=== PATIENT | female | born 1940 | race Two or more races ===

== ENCOUNTER 2025-02-01 00:54 | Emergency (ER) | payer OTHER ==
[2025-02-01 01:06] VITALS: RESP 16; BMI 23.8
[2025-02-01] MEDS ORDERED: MAG HYDROX/AL HYDROX/SIMETH 30 ML UNIT-DOSE CUP ONE (02:28)
[2025-02-01] MEDS ORDERED: LIDOCAINE VISCOUS 2% ORAL/TOP 15 ML UNIT-DOSE CUP ONE (02:28)
[2025-02-01] MEDS ORDERED: ACETAMINOPHEN INJECTION 100 ML ONE (02:28)
[2025-02-01] MEDS ORDERED: FAMOTIDINE 20 MG/50 ML IVPB 20 MG/50 ML MG IVPB ONE (02:28)
[2025-02-01] MEDS: SODIUM CHLORIDE 0.9% 500 ML INFUS.BAG IV ONE (02:47)
[2025-02-01] MEDS: ACETAMINOPHEN 1000 MG/100 ML BAG IVPB ONE (02:47)
[2025-02-01] MEDS: LIDOCAINE VISCOUS 2% ORAL/TOP 15 ML UNIT-DOSE CUP MM ONE (02:47)
[2025-02-01] MEDS: MAG HYDROX/AL HYDROX/SIMETH 30 ML UNIT-DOSE CUP PO ONE (02:47)
[2025-02-01 02:51] LABS: ABSOLUTE IMMATURE GRANULOCYTES 0.03 x10^3/uL (0.0-0.031); BASOPHILS # 0.02 x10^3/uL (0.01-0.08); EOSINOPHIL % 0.3 % (0.7-5.8); EOSINOPHILS # 0.02 x10^3/uL (0.04-0.36); MCHC 32.4 g/dl (32.2-35.5); MEAN CELL VOLUME 84.6 fl (79.4-94.8); MEAN PLT VOLUME 9.7 fl (9.4-12.3); MONOCYTE # 0.79 x10^3/uL (0.24-0.86); MONOCYTE % 10.1 % (4.7-12.5); RDW 14.8 % (12.5-17.0)
[2025-02-01] MEDS: FAMOTIDINE 20 MG/50 ML IVPB 20 MG/50 ML MG IVPB ONE (03:02)
[2025-02-01 03:05] LABS: GLUCOSE,RANDOM 155.0 mg/dL (74-106)
[2025-02-01 03:06] LABS: TOT PROT 7.1 g/dl (6.4-8.2)
[2025-02-01 03:07] LABS: CO2 24.0 mmol/L (21-32)
[2025-02-01 03:09] LABS: ALK PHOS 95.0 U/L (40-150)
[2025-02-01 03:11] LABS: SGOT/AST 35.0 U/L (5-34); SGPT/ALT 26.0 U/L (0-55)
[2025-02-01 03:12] LABS: CREATININE 0.8 mg/dL (0.55-1.3)
[2025-02-01 04:17] VITALS: BP 108/59; PULSE 75; TEMP 98.4
== END 2025-02-01 04:38 | disposition home or self-care (01) ==
LOC: JER 00:54
PROC: 3E033GC Introduction of Other Therapeutic Substance into Peripheral Vein, Percutaneous Approach (ICD-10-PCS; principal; 2025-02-01)
PROC: 3E033NZ Introduction of Analgesics, Hypnotics, Sedatives into Peripheral Vein, Percutaneous Approach (ICD-10-PCS; 2025-02-01)
DX: R10.13 Epigastric pain (principal); R11.2 Nausea with vomiting, unspecified; R42 Dizziness and giddiness
CPT/HCPCS: 36415; 71045-TC-FY; 80053; 83690; 83735; 84484; 85025; 93005; 93010; 96365; 96375; 99285-25